=== PATIENT | male | born 1960 | race Caucasian/White ===

== ENCOUNTER → 2020-05-08 | Outpatient (CLI) | payer OTHER ==
[~2020-05-08] MED LIST: FLON1SPR; LIPI20TA PO; PREV1CAP PO; SING10TA32 PO; ZYRT10CA PO
--- NOTE | 2020-05-08 16:23 | REPVR ---
PROCEDURE INFORMATION: Exam: CT Maxillofacial Without Contrast, Sinus Exam date and time: 05/08/2020 3:58 PM Age: 59 years old Clinical indication: Sinusitis; Chronic; Additional info: Nasal polyps, pre-op, with brain lab TECHNIQUE: Imaging protocol: CT Maxillofacial without contrast. Focus on the sinuses. Radiation optimization: All CT scans at this facility use at least one of these dose optimization techniques: automated exposure control; mA and/or kV adjustment per patient size (includes targeted exams where dose is matched to clinical indication); or iterative reconstruction. COMPARISON: No relevant prior studies available. FINDINGS: Frontal sinuses: Normal. No air-fluid levels. Ethmoid air cells: Normal. No air-fluid levels. Sphenoid sinuses: Normal. No air-fluid levels. Maxillary sinuses: Moderate mucosal thickening is present in the maxillary sinuses. There are no air-fluid levels. Prior medial maxillary antrostomy surgery has been performed. Nasal cavity/Septum: There is a possible 2.8 x 2.1 x 0.6 cm polyp the within the superior left nasal cavity, medial to the left superior and middle turbinates. Orbital cavity: Orbits are normal. Globes are unremarkable. Bones/joints: Unremarkable. Soft tissues: Unremarkable. IMPRESSION: 1. Chronic maxillary sinus disease 2. Possible left nasal polyp Electronically signed by: John Light On 05/08/2020 16:24:12 PM
== END ==
LOC: M RAD 15:48
PROVIDERS: ATTEND Otolaryngology
DX: J33.9 Nasal polyp, unspecified (principal)

== ENCOUNTER → 2021-02-01 | Outpatient (CLI) | payer OTHER ==
--- NOTE | 2021-02-01 16:44 | REP ---
INDICATION: LUMBAR RADICULOPATHY. Right-sided low back pain extending down the right lower extremity. COMPARISON: Comparison study May 07, 2018. TECHNIQUE: Sagittal and axial T1 and T2-weighted scans are acquired in the usual fashion with and without fat saturation. Sequences include spin echo, turbo spin-echo, and STIR imaging sequences. FINDINGS: Lumbar vertebral body heights are preserved. Alignment is normal. No extra vertebral abnormality is observed. There is no evidence of spondylolysis or spondylolisthesis. The tip of the conus medullaris is normal in position and appearance at the lower margin of L1 unchanged. Axial and sagittal images taken at L1-2, L2-3 show no disc protrusion, central canal stenosis, or foraminal narrowing. At L3-4, there is mild degenerative narrowing of the disc and minimal diffuse disc bulging is present. No foraminal narrowing or spinal stenosis is seen. At L4-5, there is also mild diffuse disc bulging. Ligamentum flavum and facet hypertrophy is present at L4-5. There is a small right foraminal disc protrusion at L4-5 which is a new finding. This produces right-sided neural foraminal narrowing. At L5-S1, there is degenerative disc narrowing and diffuse disc bulging. The previously noted left posterior and left foraminal disc protrusion is again seen. There is mild left neural foraminal narrowing as result in combination with discogenic spurring and facet hypertrophy. There is mild right-sided neural foraminal narrowing at L5-S1 as well due to disc bulging and mild facet hypertrophy. IMPRESSION: Degenerative spondylosis changes. New right foraminal disc protrusion at L4-5. The previously noted left posterior and left foraminal disc protrusion persist. There is mild bilateral neural foraminal <Electronically signed by Arsen Mccann > 02/01/21 1640
== END ==
LOC: M PLAIMG 15:39
PROVIDERS: ATTEND Pain Medicine Interventional Pain Medicine
DX: M54.16 Radiculopathy, lumbar region (principal); M47.812 Spondylosis without myelopathy or radiculopathy, cervical region; M51.26 Other intervertebral disc displacement, lumbar region